=== PATIENT | female | born 2000 | race Caucasian/White ===

== ENCOUNTER 2020-04-04 10:09 | Emergency (ER) | payer BC ==
[~2020-04-04] VITALS: Ht 167.6 cm; Wt 68.0 kg
[2020-04-04 10:09] VITALS: BP_SYST 125
[2020-04-04] MEDS ORDERED: NACL 0.9% 1,000 ML IV ONE (10:32)
[2020-04-04] MEDS ORDERED: DIPHENHYDRAMINE INJ 50 MG/ML VIAL IVP ONE (10:45)
[2020-04-04] MEDS ORDERED: MORPHINE 4 MG/ML INJ. SYRINGE IVP ONE (10:45)
[2020-04-04] MEDS ORDERED: ONDANSETRON HCL 4 MG/2 ML VIAL IVP ONE (10:45)
[2020-04-04 11:15] LABS: BASOPHILS % (AUTO) 0.6 % (0.0-2.0); EOSINOPHILS # (AUTO) 0.1 K/uL (0.0-0.4); EOSINOPHILS % (AUTO) 1.2 % (0.0-4.0); HEMATOCRIT 38.4 % (36-48); HEMOGLOBIN 12.9 g/dL (12.0-16.0); LYMPHOCYTES # (AUTO) 1.7 K/uL (1.0-5.5); LYMPHOCYTES % (AUTO) 37.8 % (20.5-51.5); MEAN CORPUSCULAR HEMOGLOBIN 29 pg (27-31); MEAN CORPUSCULAR HGB CONC 33 % (32-36); MEAN CORPUSCULAR VOLUME 88 fL (79.0-98.0); MONOCYTES # (AUTO) 0.3 K/uL (0.0-1.0); MONOCYTES % (AUTO) 6.8 % (1.7-9.3); NEUTROPHILS # (AUTO) 2.4 K/uL (1.8-7.7); NEUTROPHILS % (AUTO) 53.6 % (40.0-70.0); PLATELET COUNT (AUTO) 238 K/uL (130-430); RED BLOOD CELL COUNT(AUTO) 4.38 MIL/uL (4.2-6.2); WHITE BLOOD COUNT (AUTO) 4.6 K/uL (4.5-11.0)
[2020-04-04 11:30] LABS: CALCIUM 9.3 mg/dL (8.4-11.0); CREATININE 1.06 mg/dL (0.55-1.30); POTASSIUM 3.3 mmol/L (3.5-5.1)
[2020-04-04 11:34] LABS: TOTAL BILIRUBIN 0.6 mg/dL (0.0-1.0)
[2020-04-04 14:58] VITALS: BP_SYST 125
== END 2020-04-04 14:58 | disposition home or self-care (01) ==
LOC: SED 10:09
DX: N20.1 Calculus of ureter (principal); R10.31 Right lower quadrant pain; E87.6 Hypokalemia; F12.90 Cannabis use, unspecified, uncomplicated
CPT/HCPCS: 36415; 74177; 80053; 84703; 85025; 96361; 96374; 96375; 99285; J1200; J2270; J2405; J7030; Q9967